=== PATIENT | female | born 1990 ===

== ENCOUNTER 2018-11-25 06:15 | Inpatient (IN) ==
[2018-11-25] MEDS ORDERED: ONDANSETRON 4 MG/2 ML VIAL IV PRN ×3 (06:27→13:32)
[2018-11-25] MEDS ORDERED: FAMOTIDINE 20 MG/2 ML VIAL IV ONE (06:27)
[2018-11-25] MEDS ORDERED: CITRIC ACID/SODIUM CITRATE 30 ML UDCUP PO ONE (06:27)
[2018-11-25] MEDS ORDERED: ceFAZolin 3,000 MG in SYRINGE 1 EACH IV ONE (06:27)
[2018-11-25 06:53] LABS: Basophils % 0.4 % (0.0-0.8); Eosinophils # 0.1 10*3/uL (0.0-0.87); Eosinophils % 0.7 % (0.00-10.9); Hematocrit 33.1 VOL% (35.7-47.0); Hemoglobin 10.3 GM/DL (12.0-16.0); Immature Granulocytes % 0.6 %; Immature Granulocytes Absolute 0.05 #; Lymphocytes # 2.2 10*3/uL (1.4-4.0); Lymphocytes % 27.4 % (21.3-54.2); Mean Corpuscular HGB Conc 31.1 GM/DL (32-36); Mean Corpuscular Hemoglobin 27 PG (27-34); Mean Corpuscular Volume 85.3 FL (87-102); Mean Platelet Volume 9.3 FL (9.6-12.0); Monocytes # 0.8 10*3/uL (0.11-0.8); Monocytes % 9.5 % (1.7-12.7); Neutrophils % 61.4 % (38.7-73.9); Platelet Count 298 T/CUMM (130-400); Red Blood Count 3.88 MC/CUMM (3.8-5.5); Red Cell Distribution Width 13.9 % (9.3-17.3); White Blood Count 8.1 T/CUMM (4-12)
[2018-11-25] MEDS: LACTATED RINGERS 1,000 ML IV SCH ×2 (06:55→07:55)
[2018-11-25] MEDS ORDERED: OXYTOCIN/LR 30 UNIT/1,000 ML BAG IV ONE (07:29)
[2018-11-25] MEDS ORDERED: OXYTOCIN 10 UNIT/ML VIAL IM ONE (07:29)
[2018-11-25 09:47] LABS: Cord Arterial Blood HCO3 22.3 MMOL/L
[2018-11-25 09:48] LABS: Cord Venous Blood HCO3 24.8 MMOL/L; Cord Venous Blood PCO2 43.1 MMHG; Cord Venous Blood PO2 34.3 MMHG
[2018-11-25] MEDS ORDERED: OXYTOCIN/LR 20 UNIT/1,000 ML BAG IV ONE (09:54)
[2018-11-25] MEDS ORDERED: ACETAMINOPHEN 325 MG TABLET PO PRN (09:54)
[2018-11-25] MEDS ORDERED: SIMETHICONE CHEW 80 MG TABLET PO PRN (09:54)
[2018-11-25] MEDS ORDERED: ceFAZolin 1,000 MG in SYRINGE 1 EACH IV SCH ×2 (10:00→23:30)
[2018-11-25] MEDS ORDERED: RHO(D) IMMUNE GLOBULIN 300 MCG SYRINGE IM ONE (10:00)
[2018-11-25] MEDS ORDERED: LACTATED RINGERS 1,000 ML IV SCH ×2 (10:00→19:30)
[2018-11-25 10:13] LABS: Apearance,Urine CLEAR (Clear); Bacteria,Urine Occasional /HPF (Few); Bilirubin,Urine Negative (Negative); Blood, Urine Negative (Negative); Glucose,Urine (UA) Negative (Negative); Ketones,Urine Negative (Negative); Mucus,Urine Occasional /LPF (Occasional); Nitrite,Urine Negative (Negative); Protein,Urine Negative; RBC,Urine 1 /HPF (0-4); Squamous Epithelial Cell,Urine Occasional /HPF (0-10); Urine Color Yellow (Yellow); Urine Specific Gravity 1.019 (1.001-1.035); WBC,Urine <1 /HPF (0-6)
[2018-11-25] MEDS ORDERED: PHENYLEPHRINE 1 MG/10 ML SYRINGE IV ONE (13:06)
[2018-11-25] MEDS ORDERED: MORPHINE 10 MG/10 ML VIAL ONE (13:07)
[2018-11-25] MEDS ORDERED: BUPIVACAINE SPINAL 0.75% 2 ML AMP SPINAL ONE (13:08)
[2018-11-25] MEDS ORDERED: HYDROmorphone 2 MG/1 ML VIAL IV PRN (13:17)
[2018-11-25 17:30] LABS: Basophils % 0.2 % (0.0-0.8); Eosinophils % 0.2 % (0.00-10.9); Hematocrit 29.4 VOL% (35.7-47.0); Hemoglobin 9.1 GM/DL (12.0-16.0); Immature Granulocytes % 0.3 %; Immature Granulocytes Absolute 0.03 #; Lymphocytes # 2.4 10*3/uL (1.4-4.0); Mean Corpuscular Hemoglobin 26 PG (27-34); Mean Corpuscular Volume 84.5 FL (87-102); Mean Platelet Volume 9.9 FL (9.6-12.0); Monocytes # 0.8 10*3/uL (0.11-0.8); Monocytes % 7.8 % (1.7-12.7); Neutrophils # 7.2 10*3/uL (1.4-7.4); Neutrophils % 68.5 % (38.7-73.9); Platelet Count 241 T/CUMM (130-400); Red Blood Count 3.48 MC/CUMM (3.8-5.5); Red Cell Distribution Width 14.1 % (9.3-17.3); White Blood Count 10.5 T/CUMM (4-12)
[2018-11-26] MEDS: DOCUSATE SODIUM 100 MG CAPSULE PO SCH ×3 (02:30→21:23)
[2018-11-26 05:43] LABS: Basophils % 0.3 % (0.0-0.8); Eosinophils # 0.1 10*3/uL (0.0-0.87); Eosinophils % 1.6 % (0.00-10.9); Hematocrit 28.1 VOL% (35.7-47.0); Hemoglobin 8.6 GM/DL (12.0-16.0); Immature Granulocytes % 0.3 %; Immature Granulocytes Absolute 0.02 #; Lymphocytes # 1.8 10*3/uL (1.4-4.0); Lymphocytes % 23.1 % (21.3-54.2); Mean Corpuscular HGB Conc 30.6 GM/DL (32-36); Mean Corpuscular Hemoglobin 26 PG (27-34); Mean Corpuscular Volume 84.9 FL (87-102); Mean Platelet Volume 9.2 FL (9.6-12.0); Monocytes # 0.7 10*3/uL (0.11-0.8); Monocytes % 8.8 % (1.7-12.7); Neutrophils % 65.9 % (38.7-73.9); Platelet Count 194 T/CUMM (130-400); Red Blood Count 3.31 MC/CUMM (3.8-5.5); Red Cell Distribution Width 14.1 % (9.3-17.3); White Blood Count 7.6 T/CUMM (4-12)
[2018-11-26] MEDS ORDERED: METOCLOPRAMIDE 10 MG TABLET PO SCH (08:00)
[2018-11-26] MEDS: MAGNESIUM HYDROXIDE SUSP 30 ML UDCUP PO PRN ×2 (08:49→10:52)
[2018-11-26] MEDS: MULTIVITAMIN (PRENATAL) TABLET PO SCH (08:49)
[2018-11-26] MEDS: FERROUS SULFATE 325 MG TABLET PO SCH ×2 (14:49→21:23)
[2018-11-26] MEDS: IBUPROFEN 800 MG TABLET PO PRN (18:21)
[2018-11-27] MEDS: MULTIVITAMIN (PRENATAL) TABLET PO SCH (08:40)
[2018-11-27] MEDS: DOCUSATE SODIUM 100 MG CAPSULE PO SCH ×2 (08:40→21:20)
[2018-11-27] MEDS: FERROUS SULFATE 325 MG TABLET PO SCH ×2 (08:40→21:20)
[2018-11-27] MEDS: IBUPROFEN 800 MG TABLET PO PRN ×2 (08:41→21:21)
[2018-11-28 07:57] VITALS: BP 144/83
[2018-11-28] MEDS: MULTIVITAMIN (PRENATAL) TABLET PO SCH (09:10)
[2018-11-28] MEDS: DOCUSATE SODIUM 100 MG CAPSULE PO SCH (09:10)
[2018-11-28] MEDS: FERROUS SULFATE 325 MG TABLET PO SCH (09:10)
[2018-11-28] MEDS ORDERED: DIPH/TET/ACEL PERT BOOSTER VACCINE 0.5 ML VIAL IM ONE (09:53)
== END 2018-11-28 13:10 | disposition home or self-care (01) | DRG 540 ==
LOC: N.LDOUT 06:15 → N.LD 06:17 → N.OB 12:56
PROVIDERS: ADMIT Obstetrics & Gynecology; ATTEND Obstetrics & Gynecology
PROC: LDCSECT (ICD-10-PCS; 2018-11-25 08:30)